=== PATIENT | male | born 1960 | race Hispanic/Latino ===

== ENCOUNTER → 2017-10-16 | Outpatient (CLI) | payer OTHER ==
--- NOTE | 2017-10-16 18:24 | Diagnostic Imaging Report ---
PROCEDURE:FEMUR 2 VIEWS MINIMUM LEFT COMPARISON:None. INDICATIONS:POST FALL 2 MONTHS AGO. LEFT HIP PAIN, RADIATES TO LOWER BACK FINDINGS: Limited by body habitus. There are no fractures, dislocations, lytic or blastic lesions. The bones are well-mineralized. The soft-tissues are unremarkable. CONCLUSION: No acute fracture or dislocation of the left femur. Dictated by: Leeroy Mobley M.D. on 10/16/2017 at 18:31 Electronically approved by: Leeroy Mobley M.D. on 10/16/2017 at 18:31
== END ==
LOC: RAD 17:38
PROVIDERS: ATTEND Family Medicine
DX: S70.12XA Contusion of left thigh, initial encounter (principal); W18.39XA Other fall on same level, initial encounter

== ENCOUNTER → 2020-07-14 | Outpatient (CLI) | payer OTHER | LOC: US 08:48 | PROVIDERS: ATTEND Family Medicine | DX: E04.9 Nontoxic goiter, unspecified (principal) | CPT/HCPCS: 76536 ==